=== PATIENT | male | born 1930 | race Caucasian/White ===

== ENCOUNTER 2017-06-10 13:59 | Inpatient (IN) | payer MEDICARE ==
[~2017-06-10] VITALS: Ht 185.4 cm; Wt 79.4 kg
[~2017-06-10 13:59] MED LIST: CIPRO500 MG PO; DULCOLAX10 MG/SUPP RC; GLUCOPHAGE500 MG PO; HYTRIN1 MG PO; LOW DOSE ASPIRI81 M1 PO; MIRALAX17 GM PO; NAPROSYN500 MG PO; NORVASC5 MG PO; OCUVITE TABLET1 TA1 PO; PEPCID40 MG PO; PLAVIX75 MG PO; PLETAL50 MG PO; PROSCAR5 MG PO; PROTONIX40 MG PO; PROZAC20 MG PO; SENOKOT-S TABLE1 TAB PO; ZANTAC300 MG PO
[2017-06-10 16:01] LABS: BASOPHILS 0.2 % (0-2); EOSINOPHILS 0.6 % (0-7); HEMATOCRIT 37.4 % (42.0-54.0); IMMATURE GRANULOCYTES 0.2 % (0-5); MCH 30.7 pg (26.0-34.0); MCHC 34.8 g/dL (31.0-37.0); MCV 88.4 fL (80.0-100.0); PLATELET COUNT 167 10x3/uL (130-400); RBC 4.23 10x6/uL (4.20-6.10); RDW 13.2 % (11.5-14.5)
[2017-06-10 16:16] LABS: INR 1.17 (0.85-1.17); PROTIME 14.8 SECONDS (11.6-15.0)
[2017-06-10 16:23] LABS: ALBUMIN 3.4 g/dL (3.4-5.0); ALKALINE PHOSPHATASE 80 U/L (46-116); ALT (SGPT) 17 U/L (10-68); CALC OSMOLALITY 281 mosm/kg (275-300); CALCIUM 8.3 mg/dL (8.5-10.1); CARBON DIOXIDE 23.9 mmol/L (21.0-32.0); CHLORIDE - SERUM 104 mmol/L (98-107); CREATININE - SERUM 0.8 mg/dL (0.6-1.3); GLUCOSE 161 mg/dL (74-106); POTASSIUM - SERUM 4.6 mmol/L (3.5-5.1); PROTEIN - SERUM 6.5 g/dL (6.4-8.2); SODIUM 139 mmol/L (136-145); UREA NITROGEN 15 mg/dL (7-18); eGFR NON AFRICAN AMERICAN > 90 mL/min (90-120)
[2017-06-10 16:30] LABS: TROPONIN-I < 0.017 ng/mL (0.000-0.060)
[2017-06-10 16:43] LABS: APPEARANCE CLEAR (CLEAR); COLOR DK YELLOW (YELLOW)
[2017-06-10 16:44] LABS: BILIRUBIN NEGATIVE (NEGATIVE); GLUCOSE NEGATIVE (NEGATIVE); KETONE SMALL mg/dL (NEGATIVE); LEUKOCYTE ESTERASE NEGATIVE (NEGATIVE); NITRITE NEGATIVE (NEGATIVE); PROTEIN TRACE mg/dL (NEGATIVE); UROBILINOGEN NORMAL (NORMAL)
[2017-06-10] MEDS ORDERED: DEBROX OTIC15 ML EACH EAR (18:20)
[2017-06-10] MEDS ORDERED: METOPROLOL TART25 MG PO (18:21)
[2017-06-10] MEDS ORDERED: FERROUS SULFAT325 MG PO (18:21)
[2017-06-10] MEDS ORDERED: ZANTAC300 MG PO (18:22)
[2017-06-10] MEDS ORDERED: HYTRIN5 MG PO (18:23)
[2017-06-10] MEDS ORDERED: TRAZODONE HCL50 MG PO (18:23)
[2017-06-10 18:39] VITALS: BP 161/76; BMI 23.1
[2017-06-10 20:00] VITALS: BP 132/78
[2017-06-11] VITALS (11 sets, daily range): BP systolic 97–140; BP diastolic 56–95
[2017-06-11 05:27] LABS: BASOPHILS 0 % (0-2); EOSINOPHILS 0 % (0-7); HEMATOCRIT 33.4 % (42.0-54.0); HEMOGLOBIN 11.4 g/dL (13.5-17.5); IMMATURE GRANULOCYTES 0.2 % (0-5); LYMPHOCYTES 5.5 % (15-50); MCHC 34.1 g/dL (31.0-37.0); MCV 87.9 fL (80.0-100.0); MEAN PLATELET VOLUME 10.3 fL (7.4-10.4); MONOCYTES 7.3 % (2-11); PLATELET COUNT 160 10x3/uL (130-400); RDW 13.3 % (11.5-14.5); WBC 10.3 10x3/uL (4.8-10.8)
[2017-06-11 05:55] LABS: CALC OSMOLALITY 283 mosm/kg (275-300); CALCIUM 8.1 mg/dL (8.5-10.1); CARBON DIOXIDE 26.8 mmol/L (21.0-32.0); CHLORIDE - SERUM 103 mmol/L (98-107); GLUCOSE 201 mg/dL (74-106); POTASSIUM - SERUM 4.6 mmol/L (3.5-5.1); SODIUM 137 mmol/L (136-145); eGFR NON AFRICAN AMERICAN 75 mL/min (90-120)
[2017-06-11 06:03] LABS: UREA NITROGEN 24 mg/dL (7-18)
--- NOTE | 2017-06-11 08:00 | NUR ---
LEFT FLOOR FOR SURGERY, A&O
--- NOTE | 2017-06-11 13:24 | HP ---
PATIENT: RADHA GARCÍA MEDICAL RECORD: [id number] ACCOUNT: [id number] LOCATION:[id number] : [birth year] ADMISSION DATE: 06/10/17 HISTORY AND PHYSICAL EXAMINATION HISTORY OF PRESENT ILLNESS: An 87-year-old male who tripped and fell coming back to the assisted living facility today complaining of left hip pain and was unable to bear weight after the fall, brought to the Emergency Room and found to have a left femur fracture, closed. PAST MEDICAL HISTORY: Significant for diabetes, hypertension, remote history of ischemic cerebrovascular accident, also remote history of bladder cancer, iron deficiency anemia, hypertension, temporal arteritis and BPH. SOCIAL HISTORY: , retired and lives in [facility]. Admits occasional alcohol, had 2 drinks prior to his fall. He continues to smoke on a daily basis. FAMILY HISTORY: Mother and sister with heart disease. PAST SURGICAL HISTORY: Tumor resection in 1991, appendectomy in 1949. CURRENT MEDICATIONS: Plavix 75 mg daily, iron sulfate 325 mg delayed release b.i.d., finasteride 5 mg daily, fluoxetine 20 mg daily, metoprolol 25 mg b.i.d., pantoprazole 40 mg daily, ranitidine 300 mg daily, prazosin 5 mg b.i.d. and trazodone 50 mg q.h.s. REVIEW OF SYSTEMS: CONSTITUTIONAL: No acute change in weight or appetite. HEENT: No cephalgia, visual changes, tinnitus, epistaxis or dysphagia. CARDIOVASCULAR: Denies chest pain or palpitations. PULMONARY: Denies hemoptysis, denies night sweats. Has COPD and continues to smoke. GASTROINTESTINAL: Denies hematemesis, hematochezia or melena. GENITOURINARY: Denies dysuria, no acute changes. MUSCULOSKELETAL: Left hip pain, acute fracture as noted above. NEUROLOGIC: No focal deficits. PHYSICAL EXAMINATION: VITAL SIGNS: Temp 98.1, heart rate 94 and regular, respirations 18, blood pressure 144/72, O2 sat is 94% on 2 liters. GENERAL: Alert and oriented, in no significant distress when not moving, grossly pain in left hip. HEENT: Normocephalic, atraumatic. Eyes: Pupils equal, round, reactive. Ears: Canals patent. TMs are intact. Nose: Nares patent without drainage. Throat: No erythema, no exudates. NECK: Supple. No lymphadenopathy. HEART: Regular rate and rhythm. No S3, S4, no rub. LUNGS: Clear to auscultation bilaterally, mild expiratory wheeze. Breathing is nonlabored. ABDOMEN: Soft, nontender. Bowel sounds in all 4 quadrants. EXTREMITIES: Present times 4, no edema. NEUROLOGIC: No present focal deficits appreciated. LABORATORY DATA: Urinalysis: Yellow, clear, specific gravity 1.03. CBC: HISTORY AND PHYSICAL [id number] RADHA GARCÍA White count 10,000, hemoglobin 13, hematocrit 37.4, platelets 167. PT 14.8, INR 1.17. Chemistry shows sodium of 139, potassium 4.6, chloride 104, bicarb 23.9, BUN 15, creatinine 0.8, glucose 161, AST 15, ALT 17, alkaline phosphatase 80. Troponin less than 0.017. X-ray of left hip, 2 views, comminuted intertrochanteric fracture with some impaction, varus angulation, degenerative changes. Chest x-ray, under inflation, mild vascular congestion, no acute process. ASSESSMENT AND PLAN: 1. Intertrochanteric left femur fracture. Ortho consulted. Surgery anticipated at 8:00 a.m. in the morning per report. 2. Iron deficiency anemia. Monitor. Continue iron supplements. 3. Chronic obstructive pulmonary disease. DuoNeb q.i.d. and prior to intubation. 4. Diabetes. Sliding scale insulin low resistance q. 12 hours. Supportive care. Also discussed with the patient and family code status, anticipate good outcome though with age and comorbidities, they state his wishes DNR code status. No heroic measures. TRANSINT:[id number] Voice Confirmation ID: [id number] DOCUMENT ID: [id number] HORTENSIA ADAIR DO at 1324 CC: [id number] DICTATION DATE: 06/10/171746 EXTERIOR DESIGNER: 06/10/17 1850 ADM IN [id number] [place] [address]
--- NOTE | 2017-06-11 14:25 | OP ---
PATIENT NAME: RADHA GARCÍA MEDICAL RECORD: [id number] :[birth year] LOCATION:[id number] ADMISSION DATE:06/10/17 SURGEON: CONSTANZA FIELDS, OPERATION DATE: 06/10/17 DATE OF OPERATION: 06/11/2017 PROCEDURE PERFORMED: Left hip intramedullary nailing. INDICATION FOR PROCEDURE: Mr. García is an 87-year-old male who fell after having lunch yesterday and sustained a left hip fracture. It was an unstable IT fracture and after discussion with his family and himself, he did not want to be bedridden as he is active. He does walk with a walker, but he does get out and he is not bedbound. Therefore, they decided to proceed forward with the procedure of a left hip intramedullary nailing. After the risks and benefits of the procedure were discussed, they consented to have the procedure done as his daughter is his power of sports attorney and he is lucid. PREOPERATIVE DIAGNOSIS: Left hip unstable intertrochanteric fracture. POSTOPERATIVE DIAGNOSIS: Left hip unstable intertrochanteric fracture. DESCRIPTION OF PROCEDURE: Mr. García, after proper consents were performed was taken to the operative suite, placed in supine position, intubated by anesthesia and sedated. He was then moved over to the fracture table. At that time, the left foot was wrapped with ABDs, Webril and Coban and placed into the foot martínez. The foot martínez was then overwrapped with Coban to avoid any slippage of the left foot. A timeout was then performed and all parties were in agreement with the correct side and site and patient and 2 grams of Ancef were given to the patient at that time. At that time, the x-ray machine came in, C-arm and a reduction was performed with the left hip and it was seen to be in adequate position. The left hip was then prepped and draped in a sterile manner and proceeded forth with the guide pin being placed into the correct position just medial to the greater trochanter between the anterior one-third and posterior two-thirds of the trochanter just medial to that. Guide pin was then placed into the intramedullary canal and the soft tissue protector was placed over that. The anterior reamer was then reamed over the guide pin and reaming then commenced using up to a 13 reamer and the length of the nail was measured at that time. The length was 11 mm nail x 420 mm. After the reaming, the intramedullary nail was placed over the guide pin and taken to the appropriate depth and the guide pin was then removed. At that time, the jig was in place with the nail and attention was then drawn to the lag screw site. The cannula was placed up through the jig and the skin was incised at that site and a proper trajectory and placement of the lag screw. Guide pin was placed into the center of the femoral head on the lateral position and was in correct position on the AP as well. Measurement was then made to be 105-mm lag screw and the drill was then placed up in from the lag screw and the 105-mm lag screw was then ____ lag screw, the anti-rotation drill was used just superior to the lag screw site and put in place. Lag screw was then put into place and the anti-rotation screw drill was removed. Traction was then taken off of the leg and the lag screw was compressed using the compression device. Once that was done, the anti-rotation screw was placed through the jig and x-rays were confirmed that was in the proper position on the AP. On the lateral; however, appeared to miss the jig posteriorly; however, it was still in bone as left in place. The jig was then removed and attention was drawn to the distal aspect of the nail and perfect OPERATIVE REPORT [id number] RADHA GARCÍA were performed using the C-arm. Drill bits were then used after incising the skin to go through the drill holes through the nail and a 44-mm screw was placed in the proximal hole and a 48-mm screw was used in the distal one. The anti-rotation screw was a 95-mm. After that was done, the wounds were copiously irrigated with normal saline and the IT band was closed using #1 Vicryl and the skin at the proximal sites were closed with 2-0 inverted interrupted. The distal sites were closed with #1 inverted interrupted with 4-0 Monocryl. The proximal sites were then ran on the skin with 4-0 Monocryl subcuticular running stitch at both the entry incision as well as the lag screw and anti-rotation screw incision site. Steri-Strips were then placed over the wounds and Adaptic, Telfa and Tegaderm were then placed on these sites. The patient was awakened in stable condition and taken to the recovery room in stable condition. Estimated blood loss was 100 mL. TRANSINT:[id number] Voice Confirmation ID: [id number] DOCUMENT ID: [id number] CONSTANZA FIELDS DO at 1425 CC: [id number] DICTATION DATE: 06/11/17 1028 TRADE SHOW SPECIALIST: 06/11/17 1150 ADM IN [place] [id number] [place] [address]
--- NOTE | 2017-06-11 15:27 | NUR ---
PT ASLEEP LYING FLAT IN BED. NO VISABLE SIGNS OF PAIN OR DISCOMFORT AT THIS TIME. BED IN LOW POSITION AND CALL LIGHT WITHIN REACH. WILL CONTINUE TO MONITOR.
--- NOTE | 2017-06-11 18:25 | NUR ---
PERIPHERAL PULSES CHECKED-PRESENT LEG WARM
--- NOTE | 2017-06-11 19:35 | NUR ---
RECIEVED SHIFT REPORT. PT IS LYING IN BED. ALERT AND ORIENTED AND ABLE TO VERBALIZE NEEDS. IV IS PATENT AND FLUIDS ARE RUNNING PER ORDER. SCD'S ON. DRESSINGS TO LEFT HIP C/D/I. O2 @ 5 PER OXIMIZER. PT DENIES ANY PAIN AT THIS TIME. NO NEEDS ARE VERBALIZED AT THIS TIME. WILL CONTINUE TO MONITOR. SIDE RAILS ARE UP X 2. BED IS IN LOWEST POSITION. BED ALARM IS ON FOR SAFETY. CALL LIGHT IS WITHIN REACH.
--- NOTE | 2017-06-11 21:22 | NUR ---
SHIFT ASSESSMENT COMPLETED. NIGHT MEDS GIVEN WITH NO PROBLEMS. SCHEDULED LOPRESSOR HELD DUE TO B/P=97/63. PT RECIEVED 4 UNITS INSULIN PER SLIDING SCALE FOR RSVW=328. NO NEEDS ARE VOICED. WILL MONITOR. SIDE RAILS X 2. BED LOW. BED ALARM ON. CALL LIGHT IN REACH.
[2017-06-12] VITALS: BP 158/73
[2017-06-12 04:00] VITALS: BP 138/70
[2017-06-12 04:33] LABS: BASOPHILS 0.1 % (0-2); EOSINOPHILS 0 % (0-7); HEMATOCRIT 27.3 % (42.0-54.0); HEMOGLOBIN 9.3 g/dL (13.5-17.5); IMMATURE GRANULOCYTES 0.3 % (0-5); LYMPHOCYTES 5.5 % (15-50); MCH 30.5 pg (26.0-34.0); MCHC 34.1 g/dL (31.0-37.0); MCV 89.5 fL (80.0-100.0); MEAN PLATELET VOLUME 10.1 fL (7.4-10.4); MONOCYTES 11.1 % (2-11); PLATELET COUNT 146 10x3/uL (130-400); RBC 3.05 10x6/uL (4.20-6.10); RDW 13.6 % (11.5-14.5); WBC 11.3 10x3/uL (4.8-10.8)
[2017-06-12 04:52] LABS: CALC OSMOLALITY 286 mosm/kg (275-300); CALCIUM 7.8 mg/dL (8.5-10.1); CARBON DIOXIDE 26.3 mmol/L (21.0-32.0); CHLORIDE - SERUM 105 mmol/L (98-107); CREATININE - SERUM 0.9 mg/dL (0.6-1.3); GLUCOSE 188 mg/dL (74-106); POTASSIUM - SERUM 4.3 mmol/L (3.5-5.1); SODIUM 139 mmol/L (136-145); UREA NITROGEN 25 mg/dL (7-18); eGFR NON AFRICAN AMERICAN 84 mL/min (90-120)
--- NOTE | 2017-06-12 07:45 | NUR ---
PT ASSESSMENT COMPLETE AWAKE AND ALERT ORINETD IS EXTREEMLY HARD OF HEARING NO ACUTE DISTRESS NOTED DRESSING X 3 SITES NOTED TO LEFT HIP AND THIGH. BSA X 4 PT ON ELIQUIS FOR PROPHALAXYSIS DVT.
--- NOTE | 2017-06-12 09:51 | NUR ---
Rehab Prescreening Consult recieved and the chart has been reviewed. She is POD #1 and has not had a PT eval. She is a good IRF candidate if she is able to tolerate the 3 hrs of therapy every day 5 days a week. Rehab will follow. Leanne Beckman RN Clinical Liaison, Rehab
--- NOTE | 2017-06-12 10:01 | NUR ---
Rehab Prescreening Consult recieved and the chart has been reviewed. He is POD#1. A PT eval has been ordered but not completed. Rehab will follow patient and see how he tolerates therapy. Leanne Beckman RN Clinical Liaison, Rehab
--- NOTE | 2017-06-12 14:42 | NUR ---
PT SAT UP IN CHAIR AT BEDSIDE FOR SEVERAL HOURS TODAY WITH ASSISTANCE OF THERAPY STAFF. DAUGHTER AT SIDE FOR MUCH OF SHIFT. TREATMENT FOR PAIN EARLIER THIS SHIFT DENIES PAIN AT THIS TIME
[2017-06-12 16:15] VITALS: BP 112/56
[2017-06-12 19:00] VITALS: BP 141/61
--- NOTE | 2017-06-12 19:35 | NUR ---
RECIEVED SHIFT REPORT. PT IS LYING IN BED. ALERT AND ORIENTED AND ABLE TO VERBALIZE NEEDS. IV IS PATENT AND FLUIDS ARE RUNNING PER ORDER. SCD'S ON. OXIMIZER @ 5. DRESSINGS TO LEFT HIP C/D/I. PT STATES PAIN IS 5/10. NO NEEDS ARE VERBALIZED AT THIS TIME. DAUGHTER AT BEDSIDE. WILL CONTINUE TO MONITOR. SIDE RAILS ARE UP X 3. BED IS IN LOWEST POSITION. BED ALARM IS ON FOR SAFETY. CALL LIGHT IS WITHIN REACH.
[2017-06-13] VITALS (18 sets, daily range): BP systolic 107–157; BP diastolic 54–78; Ht 185.4 cm; Wt 79.4 kg
[2017-06-13 05:04] LABS: HEMATOCRIT 22.5 % (42.0-54.0); HEMOGLOBIN 7.9 g/dL (13.5-17.5); MCH 31.1 pg (26.0-34.0); MCHC 35.1 g/dL (31.0-37.0); MCV 88.6 fL (80.0-100.0); MEAN PLATELET VOLUME 10.4 fL (7.4-10.4); RBC 2.54 10x6/uL (4.20-6.10); RDW 13.6 % (11.5-14.5); WBC 8.7 10x3/uL (4.8-10.8)
--- NOTE | 2017-06-13 07:30 | NUR ---
AWAKE AND ALERT. ORIENTED X3. NO C/O AT THIS TIME. LUNGS ARE CLEAR BILATERALLY, NO COUGH NOTED. SKIN IS INTACT WITHOUT REDNESS EXCEPT INCISIONS TO LEFT HIP WHICH HAVE A DRY INTACT DRESSING IN PLACE. NO IV AT THIS TIME. DENIES NEEDS.
--- NOTE | 2017-06-13 09:00 | NUR ---
TOOK AM MEDS WITHOUT DIFFICULTY. ATE MOST OF BREAKFAST PER SELF.
--- NOTE | 2017-06-13 11:18 | NUR ---
IV SITED TO RIGHT UPPER ARM AFTER ONE ATTEMPT WITH 20 G. GIVEN PRE MEDS FOR TRANSFUSION WELL. SITTING UP IN CHAIR AT BEDSIDE.
--- NOTE | 2017-06-13 11:45 | NUR ---
TRANSFUSION CONTINUES WITHOUT COMPLICATIONS. VSS. PATIENT IS VERY CONFUSED.
--- NOTE | 2017-06-13 11:45 | NUR ---
FIRST UNIT PRBC UP AT THIS TIME. VSS.
--- NOTE | 2017-06-13 12:45 | NUR ---
TRANSFUSION CONTINUES. VSS. FAMILY AT BEDSIDE. ATE A FEW BITES OF LUNCH.
--- NOTE | 2017-06-13 14:30 | NUR ---
TRANSFUSION COMPLETED WTIHOUT COMPLICATIONS. DENIES NEEDS. O2 SAT CONTINUE TO GO UP AND DOWN. WILL CONTINUE TO MONITOR.
--- NOTE | 2017-06-13 16:00 | NUR ---
SECOND UNIT OF PRBC UP AT THIS TIME. VSS. DENIES NEEDS.
--- NOTE | 2017-06-13 16:09 | NUR ---
Patient Name: RADHA GARCÍA Admission Status: ER Accout number: [id number] Admission Date: 06-10-2017 : 1930 Admission Diagnosis:DISPLACED INTERTROCHANTERIC FRACTURE OF LEFT FEMUR, INI Attending: LYN Current LOS: 3 Anticipated DC Date: Planned Disposition: Inpatient Rehab Primary Insurance: MEDICARE A & B Discharge Planning Comments: CM MET WITH PATIENTS DAUGHTER (DENNIS) AND HER REGARDING D/C NEEDS AND PLANS. PATIENT IS FROM [facility] AND HAS A WALKER AND WHEELCHAIR. PATIENT WAS WALKING WITH HIS WALKER BEFORE HIS FALL. PATIENTS PCP IS DR. ADAIR AND PHARMACY IS [facility]. PATIENT HAS BEEN ACCEPTED TO REHAB WITH DR. CASTILLO REFERRAL. PATIENT CANNOT RETURN TO [facility] AT THIS TIME. FAMILY WAS VERY HAPPY PATIENT HAD BEEN ACCEPTED TO REHAB. CM WILL CONTINUE TO FOLLOW PATIENT WITH D/C NEEDS AND PLANS. PCP DR. ADAIR [facility]- [phone] DENNIS (DAUGHTER) [phone] Adult Probation Officer: Ericka Maciel How many steps to enter\exit or inside your home? 0 0 * PCP DR. ADAIR 0 * Pharmacy [facility] 0 * Preadmission Environment Assisted Living 0 * Facility Name [facility] 0 * ADLs Partial Dependent 0 * Partial ADLs (Assistance needed) Ambulation Bathing Dressing Medication Management Toileting Transfers 0 * Equipment Walker Wheelchair 0 * List name and contact numbers for known caregivers / representatives who currently or will assist patient after discharge: DENNIS (DAUGHTER) [phone] 0 * Community resources currently utilized Assisted Living 0 * Please name any agencies selected above. [facility] 0 * Additional services required to return to the preadmission environment? Yes 0 * Can the patient safely return to the preadmission environment? No 0 * Has this patient been hospitalized within the prior 30 days at any hospital? No 0 Grand Total: 0
--- NOTE | 2017-06-13 16:15 | NUR ---
TRANSFUSION CONTINUES WITHOUT DIFFICULTY. VSS.
--- NOTE | 2017-06-13 17:15 | NUR ---
TRANSFUSION CONTINUES WITHOUT DIFFICUTLY. VSS. DENIES NEEDS. ATE A FEW BITES OF SUPPER.
--- NOTE | 2017-06-13 18:30 | NUR ---
TRANSFUSION COMPLETED WITHOUT DIFFICULTY. VSS. NO CHANGES AT THIS TIME.
--- NOTE | 2017-06-13 19:30 | NUR ---
RECIEVED SHIFT REPORT. PT IS LYING IN BED. PT WITH INTERMITTENT CONFUSION. IV IS PATENT AND SALINE LOC AT THIS TIME. SCD'S ON. PT DENIES ANY PAIN AT THIS TIME. DRESSINGS TO LEFT HIP C/D/I. OXIMIZER @ 12. NO NEEDS ARE VERBALIZED AT THIS TIME. WILL CONTINUE TO MONITOR. SIDE RAILS ARE UP X 2. BED IS IN LOWEST POSITION. BED ALARM IS ON FOR SAFETY. CALL LIGHT IS WITHIN REACH.
--- NOTE | 2017-06-13 21:47 | NUR ---
SHIFT ASSESSMENT COMPLETED. NIGHT MEDS GIVEN WITH NO PROBLEMS. PT RECIEVED NO INSULIN PER SLIDING SCALE FOR MIWD=496. NO NEEDS ARE VOICED. WILL MONITOR. SIDE RAILS X 2. BED LOW. BED ALARM ON. CALL LIGHT IN REACH.
[2017-06-14] VITALS: BP 166/96
[2017-06-14 04:00] VITALS: BP 135/71
--- NOTE | 2017-06-14 07:30 | NUR ---
AWAKE AND ALERT. ORIENTED TO SELF. REORIENTED PER STAFF TO TIME PLACE AND SITUATION. LUNGS ARE CLEAR BILATERALLY, NO COUGH NOTED. SKIN IS INTACT WITHOUT REDNESS EXCEPT 3 SMALL INCISIONS TO LEFT HIP WHICH HAVE DRY INTACT DRESSINGS IN PLACE. SL TO RIGHT UPPER ARM IS PATENT WITHOUT REDNESS AT INSERTION SITE. DENIES NEEDS.
[2017-06-14] MEDS ORDERED: ELIQUIS2.5 MG PO (07:50)
[2017-06-14] MEDS ORDERED: HYDROCODON-ACE1 EAC7 PO (07:51)
--- NOTE | 2017-06-14 08:00 | NUR ---
SITTING UP IN BED ALERT AND ORIENTED. DR FIELDS IN WITH PT. PT OFFERS NO COMPLAINTS. CALL LIGHT IN REACH, BED LOW. WILL CONTINUE TO MONITOR. O2 ON 12L WITH OXYMIZER
[2017-06-14 08:18] VITALS: BP 166/68
[2017-06-14 08:44] LABS: HEMATOCRIT 28.4 % (42.0-54.0); HEMOGLOBIN 10.1 g/dL (13.5-17.5); LYMPHOCYTES 10.6 % (15-50); MCH 31.2 pg (26.0-34.0); MCHC 35.6 g/dL (31.0-37.0); MCV 87.7 fL (80.0-100.0); MEAN PLATELET VOLUME 9.6 fL (7.4-10.4); NEUTROPHILS 76.5 % (40-80); PLATELET COUNT 154 10x3/uL (130-400); RBC 3.24 10x6/uL (4.20-6.10); RDW 14.1 % (11.5-14.5); WBC 7.7 10x3/uL (4.8-10.8)
--- NOTE | 2017-06-14 09:53 | NUR ---
ADMINISTERED MORNING MEDS WITHOUT DIFFICULTY PT SITTING UP IN CHAIR RESTING. OFFERS NO COMPLAINTS. CALL LIGHT IN REACH. WILL CONTINUE TO MONITOR
--- NOTE | 2017-06-14 12:30 | NUR ---
LUNCH SERVED IN ROOM. DIDN'T EAT MUCH IF ANY. DRANK GLUCERNA SHAKE. FSBS PRIOR TO MEAL WAS 139. NO COVERAGE REQUIRED. STILL SITTING UP IN CHAIR AT BEDSIDE.
[2017-06-14 15:59] VITALS: BP 160/69
--- NOTE | 2017-06-14 17:15 | NUR ---
FSBS 181 GIVEN 2 UNITS REGULAR SUBQ PER SS. ALSO C/O PAIN TO LEFT HIP. GIVEN ONE 5MG HYDROCODONE PO FOR SAME. WILL MONITOR.
--- NOTE | 2017-06-14 18:24 | NUR ---
ATE A FEW BITES OF SUPPER WITH SET UP ASSIST FROM STAFF. REPORTS PAIN IMPROVED AT THIS TIME. NO CHANGES NOTED. DENIES NEEDS.
[2017-06-14 20:00] VITALS: BP 130/55
--- NOTE | 2017-06-14 22:30 | NUR ---
ADMINISTERED PATIENT'S SCHEDULED MEDICATIONS, WHOLE, 1 AT A TIME. PATIENT SWALLOWED THEM WITHOUT DIFFICULTY. PATIENT STATED "I NEED TO PEE." ASSISTED PATIENT USING THE URINAL, BUT HE WAS ALREADY VOIDING WHEN HE VERBALIZED NEED TO URINATE SO ONLY SOME OF IT WENT IN THE URINAL.
--- NOTE | 2017-06-14 22:45 | NUR ---
WITH ASSISTANCE FROM MIKAYLA, GAVE PATIENT A BEDBATH USING THE BATHWIPES AND CHANGED HIS LINENS. AFTER THE BATH WAS FINISHED TURNED PATIENT TO HIS LEFT SIDE POSITIONED WITH A PILLOW. HOB AT 40 DEGREES. PATIENT HAS OXYMIZER ON AT 5L/MIN. PATIENT DOES NOT APPEAR TO BE IN DISTRESS. PATIENT WENT TO SLEEP SOON THE BATH WAS COMPLETE. CALL LIGHT IN REACH. BED RAILS UP X'S 3. DOOR OPEN. BED ALARM ON.
[2017-06-15] VITALS: BP 122/59
[2017-06-15 04:00] VITALS: BP 125/60
--- NOTE | 2017-06-15 07:00 | NUR ---
PT REC'D FROM [facility]. RESTING IN BED WITH EYES CLOSED. NO SIGNS OF DISTRESS. RESP EVEN AND UNLABORED. BED LOW, CALL LIGHT IN REACH, DENIES NEEDS. CPOC.
--- NOTE | 2017-06-15 07:53 | DS ---
PATIENT:RADHA GARCÍA :[birth year] MEDICAL RECORD: [id number] DISCHARGE SUMMARY ADMISSION DATE: 06/10/17 DISCHARGE DATE: DATE OF ADMISSION: 06/10/2017 DATE OF DISCHARGE: 06/14/2017 ADMISSION DIAGNOSES: Left femur fracture, acute blood loss anemia, chronic iron deficiency anemia, chronic obstructive pulmonary disease and diabetes. DISCHARGE DIAGNOSES: Left femur fracture, status post open reduction and internal fixation, postoperative anemia, resolved, status post transfusion; chronic iron deficiency anemia, chronic obstructive pulmonary disease and diabetes. HOSPITAL COURSE: The patient was admitted after a fall at the assisted living facility, found to have a left femur fracture. Orthopedics consulted and underwent open reduction and internal fixation, had postop anemia, was transfused, has been cleared for discharge to inpatient rehab. He was discharged to rehab in significantly improved condition. PHYSICAL EXAMINATION: VITAL SIGNS: On discharge, temperature 98.2, blood pressure 135/71, heart rate 86, respirations 19 and O2 sat 92%. GENERAL: Alert and oriented, in no acute distress. HEART: Regular rate and rhythm. LUNGS: Clear. ABDOMEN: Soft and nontender. Bowel sounds all 4 quadrants. LABORATORY DATA: Glucose readings past 24 hours have been 150 or less with no intervention. The patient is compliant with physical therapy, will follow up as outpatient. He is on Eliquis. We will hold his Plavix until course of Eliquis completed after his rehabilitation. He will follow up in the clinic after discharge from rehab. Please see chart for further details. TRANSINT:[id number] Voice Confirmation ID: [id number] DOCUMENT ID: [id number] HORTENSIA ADAIR DO at 0753 CC: [id number] DICTATION DATE: 06/14/17 0759 POLYSOMNOGRAPH TECH: 06/15/17 0148 ADM IN [facility] [address] [place] [address]
[2017-06-15 07:55] VITALS: BP 112/61
--- NOTE | 2017-06-15 10:00 | NUR ---
MORNING MEDS PASSED AT THIS TIME. TOLERATED WELL BY TAKING 1 TO 2 PILLS AT A TIME. FRESH WATER PROVIDED. DRESSING TO L HIP CHANGED PER ORDERS. BED LOW, CALL LIGHT IN REACH, DENIES NEEDS. CPOC.
--- NOTE | 2017-06-15 11:44 | NUR ---
PT LEFT IN WHEEELCHAIR AFTER XRAY. ASSISTED BACK TO RECLINER WITH ASSIST X 2 WITH WALKER. WALKED AT LEAST 10 STEPS APPROX. 3 FEET. CALL LIGHT IN REACH
[2017-06-15 12:17] VITALS: BP 96/56
--- NOTE | 2017-06-15 13:00 | NUR ---
SITTING UP IN CHAIR AT BEDSIDE. NO COMPLAINTS. CALL LIGHT IN REACH, DENIES NEEDS. CPOC.
--- NOTE | 2017-06-15 13:13 | NUR ---
NUTRITION MONITORING & EVAL CHART REVIEWED. PT VISIT. TOLERATING ADA DIET, GLUCERNA SHAKE. WILL CONTINUE TO PROVIDE DIET, SHAKE. RD FOLLOWING
[2017-06-15] MEDS ORDERED: LASIX40 MG PO (15:10)
[2017-06-15] MEDS ORDERED: K-DUR20 MEQ PO (15:11)
[2017-06-15 15:49] VITALS: BP 104/62
--- NOTE | 2017-06-15 16:48 | NUR ---
CM REASSESSMENT NOTE: PATIENT IS DISCHARGING TO IP REHAB TODAY. NURSE SARAH NOTIFIED FAMILY.
--- NOTE | 2017-06-15 16:59 | NUR ---
ATTEMPTING TO CALL DAUGHTER TO PROVIDE UPDATE AND INFORM OF PT'S TRANSFER TO NEW ROOM.
--- NOTE | 2017-06-15 18:56 | NUR ---
REPORT CALLED TO CHERRY WARNER, IN REHAB. PIV TO R UPPER ARM DC'D WITH CATHETER INTACT. PT WAS UNABLE TO SIGN DISCHARGE PAPERS. NO QUESTIONS OR CONCERNS VOICED AT THIS TIME. TRANSFERRED DOWN VIA BED.
== END 2017-06-15 19:00 | DRG 481 ==
LOC: D.ER 13:59 → D.MS 15:53
PROVIDERS: Emergency Medicine; Orthopaedic Surgery; ADMIT Family Medicine
PROC: 0QS636Z Reposition Right Upper Femur with Intramedullary Internal Fixation Device, Percutaneous Approach (ICD-10-PCS; principal; 2017-06-10)
DX: S72.142A Displaced intertrochanteric fracture of left femur, initial encounter for closed fracture (principal); D62 Acute posthemorrhagic anemia; W19.XXXA Unspecified fall, initial encounter; J44.9 Chronic obstructive pulmonary disease, unspecified; F17.200 Nicotine dependence, unspecified, uncomplicated; E11.9 Type 2 diabetes mellitus without complications; I10 Essential (primary) hypertension; R00.0 Tachycardia, unspecified

== ENCOUNTER 2017-06-15 17:37 | Inpatient (IN) | payer MEDICARE ==
[~2017-06-15] VITALS: Ht 185.4 cm; Wt 90.7 kg
[~2017-06-15 17:37] MED LIST changes: +DEBROX OTIC15 ML EACH EAR; +ELIQUIS2.5 MG PO; +FERROUS SULFAT325 MG PO; +HYDROCODON-ACE1 EAC7 PO; +HYTRIN5 MG PO; +K-DUR20 MEQ PO; +LASIX40 MG PO; +METOPROLOL TART25 MG PO; +TRAZODONE HCL50 MG PO
--- NOTE | 2017-06-15 18:30 | NUR ---
REVEIVED PT FROM MED SURG, PT IS HARD OF HEARING, A LITTLE OF CONFUSED, BUT SPEAK CLEARLY.
--- NOTE | 2017-06-15 22:35 | NUR ---
THREE INCISIONS EACH WITH STERI STRIPS. PROXIMAL HIP INCISION SCANT SEROUSANQUOUS DRAINAGE, DRESSING CHANGED AND REAPPLIED MEPIPLEX. DISTAL INCISIONS STERI STRIPS INTACT, DRESSING REMOVED AND OPEN TO AIR.
[2017-06-15 22:42] VITALS: BP 120/82
[2017-06-16 00:19] VITALS: BP 120/82; BMI 26.4
--- NOTE | 2017-06-16 00:31 | NUR ---
RAND BOX ALARM PUT ON PATIENT.
--- NOTE | 2017-06-16 03:29 | NUR ---
REST IN BED, EYE CLOSE, BED LOW, CALL LIGHT WITHIN REACH.
[2017-06-16 07:09] LABS: BASOPHILS 0.1 % (0-2); EOSINOPHILS 3.1 % (0-7); HEMATOCRIT 29.9 % (42.0-54.0); HEMOGLOBIN 10.2 g/dL (13.5-17.5); IMMATURE GRANULOCYTES 0.9 % (0-5); LYMPHOCYTES 17.7 % (15-50); MCH 30.4 pg (26.0-34.0); MCHC 34.1 g/dL (31.0-37.0); MEAN PLATELET VOLUME 9.1 fL (7.4-10.4); MONOCYTES 12.5 % (2-11); NEUTROPHILS 65.7 % (40-80); RBC 3.36 10x6/uL (4.20-6.10); RDW 14.2 % (11.5-14.5); WBC 7.1 10x3/uL (4.8-10.8)
[2017-06-16 07:14] LABS: PLATELET COUNT 210 10x3/uL (130-400)
--- NOTE | 2017-06-16 07:30 | NUR ---
PT IS RESTING IN BED WITH EYES CLOSED. AWOKE EASILY TO VERBAL STIMULI. ALERT AND ORIENTED X 3. CONFUSED TO TIME AND PLACE, BUT REORIENTED EASILY. VSS. O2 IS ON @ 3LPM PER NC. EXP. RHONCHI NOTED IN ALL LUNG LOBES. PT DENIES ANY PAIN OR DISCOMFORT. SR'S ARE UP X 3 IN BED. CALL LIGHT AND BEDSIDE TABLE ARE WITHIN EASY REACH.
[2017-06-16 07:31] LABS: CALC OSMOLALITY 286 mosm/kg (275-300); CALCIUM 7.9 mg/dL (8.5-10.1); CARBON DIOXIDE 27.7 mmol/L (21.0-32.0); CHLORIDE - SERUM 104 mmol/L (98-107); CREATININE - SERUM 0.7 mg/dL (0.6-1.3); POTASSIUM - SERUM 3.7 mmol/L (3.5-5.1); SODIUM 141 mmol/L (136-145); UREA NITROGEN 26 mg/dL (7-18); eGFR NON AFRICAN AMERICAN > 90 mL/min (90-120)
[2017-06-16 07:33] LABS: GLUCOSE 122 mg/dL (74-106)
[2017-06-16 08:00] VITALS: BP 142/74
--- NOTE | 2017-06-16 09:34 | NUR ---
PT IS PARTICIPATING IN THERAPY AT THIS TIME.
[2017-06-16 12:35] VITALS: Ht 185.4 cm; Wt 90.7 kg
--- NOTE | 2017-06-16 12:37 | NUR ---
PT IS SITTING IN A WC IN HIS ROOM FEEDING SELF LUNCH. NO SWALLOWING PROBLEMS NOTED. NO COMPLAINT VOICED.
--- NOTE | 2017-06-16 13:04 | NUR ---
PT ASSISTED TO THE BATHROOM WITH MAX ASSIST FOR TRANSFERS AND TOILETING. XLARGE FORMED BM NOTED. PT OFFERED A SHOWER WHICH HE ADAMANTLY REFUSED STATING HE NEEDED TO LAY DOWN AND GET SOME REST. PT ASSISTED BACK TO BED WITH 2 PERSON MAX ASSIST.
--- NOTE | 2017-06-16 15:00 | NUR ---
PT IS RESTING QUIETLY IN BED WITH EYES CLOSED. RESPS ARE EVEN AND UNLABORED. NO ACUTE DISTRESS NOTED.
--- NOTE | 2017-06-16 17:50 | NUR ---
PT RESTING QUIETLY IN BED WITH EYES CLOSED. RESPS ARE EVEN AND UNLABORED. NO ACUTE DISTRESS NOTED.
--- NOTE | 2017-06-16 18:45 | NUR ---
RESTING QUIETLY IN BED. CALL LIGHT IN REACH
[2017-06-16 19:50] VITALS: BP 138/64
--- NOTE | 2017-06-16 19:50 | NUR ---
INCONTINENCE, CLEAN AND CHANGE LINEN AND GOWN.
--- NOTE | 2017-06-17 03:13 | NUR ---
REST QUIETLY IN BED, EYE CLOSE, BED LOW, CALL LIGHT WITHIN REACH.
--- NOTE | 2017-06-17 03:15 | NUR ---
IN BED, EYES CLOSED. NO EVIDENT DISTRESS.
[2017-06-17 07:30] VITALS: BP 163/78
--- NOTE | 2017-06-17 09:27 | NUR ---
PT IS RESTING IN BED WITH EYES CLOSED AFTER BREAKFAST. NO ACUTE DISTRESS NOTED. VSS. O2 IS ON @ 3LPM PER NC. NO SOB NOTED. SR'S ARE UP X 3 IN BED. CALL LIGHT AND BEDSIDE TABLE ARE WITHIN EASY REACH.
--- NOTE | 2017-06-17 12:30 | RHP ---
PATIENT: RADHA GARCÍA MEDICAL RECORD: [id number] ACCOUNT: [id number] LOCATION:[id number] : [birth year] ADMISSION DATE: 06/15/17 REHABILITATION HISTORY AND PHYSICAL EXAMINATION POST ADMISSION PHYSICIAN EXAMINATION Post-Admission Physical Examination DATE OF ADMISSION: 06/15/2017 ADMITTING DIAGNOSIS: Left comminuted intertrochanteric hip fracture. HISTORY OF PRESENT ILLNESS: The patient was admitted to inpatient rehab with status post ORIF of a left comminuted intertrochanteric hip fracture. He is an 87-year-old gentleman, who tripped and fell, coming back from lunch at [facility]. He fell on his left side. He cannot bear weight on his left lower extremity after the fall, was brought to the ED. He normally walks with a walker. The left leg was shortened and externally rotated, increased pain with touch, range of motion or log rolling. Left hip x-ray showed a left comminuted intertrochanteric hip fracture. Ortho was consulted and after medical clearance, he went to the OR on June 11 for left hip intramedullary nailing. His postop course was complicated by hypoxia with sats in the 80s. Chest x-ray showed mild pulmonary edema and vascular congestion. He had acute blood loss anemia with an H&H of 7.3 and 22.5. He received 2 units of packed red blood cells. He had postop confusion. Previously, he was living alone in an apartment at [facility]. He is moderately independent for ADLs and mobility using a rolling walker. Currently, he is moderate to max assist for ADLs and mobility. He has been weaned to 3 L of O2 with a sat of 96%. His H&H is trending upward with an H&H of 10 and 28. His mental status is somewhat back to baseline. He wants to regain his strength and be able to return home and get back to his prior level of functioning. COMORBIDITIES: In this patient include pulmonary edema, vascular congestion, tachycardia, COPD, acute blood loss anemia, iron deficiency anemia, hypoxia, diabetes, peripheral vascular disease, impaired vision, history of CVA, temporal arteritis, BPH and bladder cancer. PAST MEDICAL HISTORY: Significant for diabetes, hypertension, history of ischemic cardiovascular accident, history of bladder cancer, iron deficiency anemia, hypertension, temporal arteritis and BPH. PAST SURGICAL HISTORY: Includes a tumor resection from his bladder in 1991 and appendectomy in 1949. ALLERGIES: LISINOPRIL AND FLOMAX. CURRENT MEDICATIONS: Include Pepcid 40 mg daily, Protonix 40 mg daily, Prozac 20 mg daily, finasteride 5 mg daily, Desyrel 50 mg q.h.s., Hytrin 5 mg b.i.d., metoprolol 25 mg b.i.d., [place] 5/325 one tab q.4 hours p.r.n., ferrous sulfate 325 mg b.i.d., Debrox to his ears 5 drops b.i.d., Dulcolax 10 mg per rectum as needed for constipation. He is on beta-carotene multivitamin daily, Eliquis 2.5 mg b.i.d. He is on a glucose replacement protocol and a low resistant insulin sliding scale and he is on MiraLax 17 g in 8 ounces of water daily. HABITS: No current alcohol or tobacco use. HISTORY AND PHYSICAL [id number] RADHA GARCÍA FAMILY HISTORY: Noncontributory. SOCIAL HISTORY: The patient hopes to return back to [facility] and get back to his prior level of functioning. REVIEW OF SYSTEMS: GENERAL: Does complain of some weakness. HEENT: Denies cold, cough, or congestion. CARDIOVASCULAR: Denies chest pain. LUNGS: Denies shortness of breath. PHYSICAL EXAMINATION: VITAL SIGNS: Stable, afebrile. GENERAL: An elderly gentleman in no acute distress, alert upon exam. HEENT: Normocephalic and atraumatic. Mucosa moist. NECK: Supple. No lymphadenopathy. LUNGS: Clear at this time. HEART: Regular rate and rhythm. ABDOMEN: Benign. EXTREMITIES: Does have appropriate swelling status post hip surgery. NEUROLOGIC: Slow to mentate, but intact. LABORATORY DATA: His white count 7.1, H&H of 10 and 29, and platelet count is noted to be 210. Sodium is 141, potassium 3.7, BUN and creatinine of 26 and 0.7, blood sugars noted to be 122. ASSESSMENT: This is an 87-year-old gentleman admitted to the rehab with a working diagnosis of status post ORIF of a left intertrochanteric hip fracture. The patient has potential to make improvement. We instituted the following multidisciplinary therapies including, but not limited to physical, occupational, respiratory, speech, nutritional services, prosthetics and orthotics. Given his complex condition and risk for more complications, rehabilitation services cannot be provided at a lower level of care such as a senior living facility. PLAN: 1. Admit to [facility] rehab for intensive inpatient therapy to include the following disciplines: A. Physical therapy to improve gait, all transfer skills and bed mobility to a modified independent level. B. Occupational therapy to improve activities of daily living to a modified independent level. C. Case management to assist with discharge planning and placement options. D. Nutrition to assist with nutritional needs. E. Rehabilitation nursing to assist in monitoring the patient's underlying medical conditions and to assist with any type of bowel or bladder management. 2. The patient's current medications and medical care will be continued. 3. The patient will be placed on standard fall precautions. 4. The patient's estimated length of stay is approximately 7-10 days. 5. Discuss this patient during care team staff meeting this week. TRANSINT:[id number] Voice Confirmation ID: [id number] DOCUMENT ID: [id number] HISTORY AND PHYSICAL [id number] RADHA GARCÍA notes whether there has been none or any medical/functional change since admission: - TISH attests patient continues to be appropriate for IRF: - ANAMIKA BANERJEE MD at 1230 CC: [id number] DICTATION DATE: 06/16/17 0843 PROTEOMICS SCIENTIST: 06/16/17 0912 ADM IN [facility] [address] [id number]
--- NOTE | 2017-06-17 12:42 | NUR ---
PT SITTING IN WC IN HIS ROOM EATING LUNCH. SUPERVISED BY OT.
--- NOTE | 2017-06-17 14:26 | NUR ---
IN THERAPY,REBECA WELL.
--- NOTE | 2017-06-17 17:39 | NUR ---
PT IS RESTIGN IN BED WITH EYES OPEN. FED SELF SUPPER WITHOUT DIFFICULTY. NO ACUTE DISTRESS NOTED.
--- NOTE | 2017-06-17 19:45 | NUR ---
PT. IN BED WITH HOB UP FOR COMFORT WITH EYES CLOSED AND RESP. DEEP AND EVEN. PT. VERY [place] BUT FINALLY WOKE UP FOR ASSESSMENT. NO VOICED NEEDS AT THIS TIME AND HIS CALL LIGHT IS WITHIN REACH.
[2017-06-17 20:00] VITALS: BP 162/76
--- NOTE | 2017-06-17 23:28 | NUR ---
PT. IN BED WITH HOB UP FOR COMFORT WITH EYES CLOSED AND RESP. DEEP AND EVEN. CALL LIGHT WITHIN REACH.
--- NOTE | 2017-06-18 03:18 | NUR ---
PT. IN BED WITH HOB UP FOR COMFORT WITH EYES CLOSED AND MOUTH WIDE OPEN BREATHING DEEPLY. CALL LIGHT WITHIN REACH.
[2017-06-18 08:00] VITALS: BP 122/62
--- NOTE | 2017-06-18 08:00 | NUR ---
PATIENT IS VERY HARD OF HEARING. ALERT/ORIENT TO SELF AND AWARE THAT HE IS IN THE HOSPITAL. INCONTANT OF BLADDER. BED CHANGED THIS AM. VINAYAK CARE GIVEN BY THIS NURSE. OXYGEN ON AT 3L PER N/C. BED ALARM ON. CALL LIGHT WITHIN REACH.
--- NOTE | 2017-06-18 11:50 | NUR ---
GLUCOSE LEVEL 123. NO SLIDING SCALE GIVEN
--- NOTE | 2017-06-18 13:00 | NUR ---
CL IN REACH.CONT TO MONITOR.
--- NOTE | 2017-06-18 15:00 | NUR ---
PATIENT IS A MAX ASST OF TWO FOR TRANSFERS
--- NOTE | 2017-06-18 17:00 | NUR ---
GLUCOSE LEVEL 134. NO SLIDING SCALE INSULIN GIVEN.
--- NOTE | 2017-06-18 19:45 | NUR ---
PT. IN BED WITH HOB UP FOR COMFORT WITH EYES CLOSED AND RESP. EVEN. PT. AWAKENS WHEN YOU SPEAK DIRECTLY INTO HIS RIGHT EAR, DUE TO DEAFNESS. ASSESSMENT COMPLETED. NO VOICED NEEDS AT THIS TIME. CALL LIGHT WITHIN REACH.
[2017-06-18 20:00] VITALS: BP 132/60
--- NOTE | 2017-06-18 23:23 | NUR ---
PT. IN BED WITH HOB UP FOR COMFORT WITH EYES CLOSED AND MOUTH WIDE OPEN WITH DEEP RESP. CALL LIGHT WITHIN REACH.
--- NOTE | 2017-06-19 03:16 | NUR ---
PT. IN BED WITH HOB UP FOR COMFORT. PT. AWAKE AND WHEN I TOLD HIM WHAT TIME IT WAS HE SAID, "LET'S GET THIS SHOW ON THE ROAD AND GET STARTED". INFORMED PT. THAT THE THERAPIST DON'T GET HERE TIL 8AM AND BREAKFAST HAS TO BE SERVED AND EATEN FIRST. PT. AGREED AND SAID, "WELL I'M GLAD SOMEONE TOLD ME." PT. POSITIONED TO COMFORT AND SAID HE'D GO TO SLEEP. CALL LIGHT WITHIN REACH.
[2017-06-19 06:59] LABS: BASOPHILS 0.3 % (0-2); EOSINOPHILS 3.6 % (0-7); HEMATOCRIT 30.4 % (42.0-54.0); HEMOGLOBIN 10.1 g/dL (13.5-17.5); IMMATURE GRANULOCYTES 1.7 % (0-5); LYMPHOCYTES 16.6 % (15-50); MCH 30.3 pg (26.0-34.0); MCHC 33.2 g/dL (31.0-37.0); MCV 91.3 fL (80.0-100.0); MEAN PLATELET VOLUME 9.2 fL (7.4-10.4); MONOCYTES 12.6 % (2-11); NEUTROPHILS 65.2 % (40-80); RBC 3.33 10x6/uL (4.20-6.10); WBC 6.9 10x3/uL (4.8-10.8)
[2017-06-19 07:04] LABS: PLATELET COUNT 295 10x3/uL (130-400)
[2017-06-19 07:50] LABS: CALC OSMOLALITY 287 mosm/kg (275-300); CALCIUM 7.9 mg/dL (8.5-10.1); CARBON DIOXIDE 30.8 mmol/L (21.0-32.0); CHLORIDE - SERUM 105 mmol/L (98-107); CREATININE - SERUM 0.7 mg/dL (0.6-1.3); GLUCOSE 111 mg/dL (74-106); POTASSIUM - SERUM 3.9 mmol/L (3.5-5.1); SODIUM 142 mmol/L (136-145); UREA NITROGEN 23 mg/dL (7-18); eGFR NON AFRICAN AMERICAN > 90 mL/min (90-120)
--- NOTE | 2017-06-19 08:02 | NUR ---
SITTING UP IN BED EATING BREAKFAST. DENIES NEEDS OR C/O. CALL LIGHT IN REACH
[2017-06-19 08:30] VITALS: BP 125/65
--- NOTE | 2017-06-19 10:01 | NUR ---
PATIENT ALERT TO SELF ONLY. VERY HARD OF HEARING. MAX ASST OF TWO TO GET PATIENT OUT OF BED. WORKING WITH PHYSICAL THERAPIST IN REHAB ROOM. BOX ALARM ON WHILE UP IN CHAIR.
--- NOTE | 2017-06-19 12:58 | NUR ---
NO SLIDING SCALE INSULIN GIVEN. GLUCOSE LEVEL 162, PATIENT DID NOT EAT LUNCH. HAD CHOCOLATE ICE CREAM IN REHABE BEFORE GLUCOSE LEVEL TAKEN
--- NOTE | 2017-06-19 17:00 | NUR ---
GLUCOSE LEVEL 131. NO SLIDING SCALE INSULIN GIVEN.
[2017-06-19 19:35] VITALS: BP 130/66
--- NOTE | 2017-06-19 19:35 | NUR ---
ASSESSMENT PER FLOW SHEET, VS OBTAINED, PT INCONTINENT, THIS RN AND AMANDA WILLARD RN CLEANED PT UP WITH WET WARM WIPES, BEDDING CHANGED, PT REPOSITIONED IN BED, PT DENIES NEEDS OR PAIN AT THIS TIME
--- NOTE | 2017-06-19 20:15 | NUR ---
PT RESTING WITH EYES CLOSED, RESP QUIET, NO DISTRESS NOTED, LEFT UNDISTURBED AT THIS
--- NOTE | 2017-06-19 21:57 | NUR ---
PT RESTING WITH EYES CLOSED, AROUSES TO SOFT VERBAL STIMULTAION, FSBS, ADM 2100 MED PO WITH THICKENED WATER, THIS RN AND SHERIF WILLARD RN CLEANED PT UP WITH WET WARM WASH CLOTHS, BEDDING CHANGED, PT POSITIONED IN BED, DENIES FURTHER NEEDS OR PAIN
--- NOTE | 2017-06-19 22:30 | NUR ---
PT RESTING WITH EYES CLOSED, RESP QUIET, NO DISTRESS NOTED, LEFT UNDISTURBED AT THIS TIME
--- NOTE | 2017-06-20 00:30 | NUR ---
PT RESTING WITH EYES CLOSED, RESP QUIET, NO DISTRESS NOTED, LEFT UNDISTURBED AT THIS TIME
--- NOTE | 2017-06-20 02:20 | NUR ---
PT RESTING WITH EYES CLOSED, RESP QUIET, NO DISTRESS NOTED, LEFT UNDISTURBE AT THIS TIME
--- NOTE | 2017-06-20 04:05 | NUR ---
PT RESTING WITH EYES CLOSED, RESP QUIET, NO DISTRESS NOTED, LEFT UNDISTURBED AT THIS TIME
--- NOTE | 2017-06-20 06:23 | NUR ---
PT RESTING WITH EYES CLOSED, AROUSES TO SOFT VERBAL STIMULATION, FSBS, PT REFUSES PROTONIX, PT INCONTINENT, PINK PAD, BLUE CHUX AND SHIRT CHANGED, PT CLEANED UP WITH WET WARM WIPES, PT DENIES NEEDS, BED ALARM CONTINUES ON AND WORKING PROPERLY, BED IN LOW POSITION, SIDE RAILS X 2, CALL LIGHT IN REACH
--- NOTE | 2017-06-20 07:00 | NUR ---
SHIFT REPORT TO DAY SHIFT
--- NOTE | 2017-06-20 08:00 | NUR ---
PATIENT IS ORIENTATED TO SELF ONLY. BOX ALARM ON. OXYGEN AT 3L PER N/C. CALL LIGHT WITHIN REACH. BREAKFAST TRAY SET UP FOR PATIENT. FOOD CUT AND CARTONS OPENED FOR PATIENT. PATIENT IS ABLE TO FEED SELF.
[2017-06-20 08:14] VITALS: BP 147/68
--- NOTE | 2017-06-20 15:26 | NUR ---
PATIENT HELPED BACK TO BED BY SISI LIFT. ASST OF TWO
--- NOTE | 2017-06-20 15:49 | NUR ---
NUTRITION MONITORING & EVAL CHART REVIEWED, PT VISIT. TOLERATING ADA DIET. GOOD INTAKE SOME MEALS. POOR PO INTAKE TODAY. WILL CONTINUE TO PROVIDE DIET, MONITOR PT PROGRESS. RD FOLLOWING
--- NOTE | 2017-06-20 17:23 | NUR ---
GLUCOSE LEVEL 149. NO SLIDING SCALE INSULIN GIVEN. PATIENT SITTING UP IN BED AND EATTING SUPPER.
--- NOTE | 2017-06-20 18:01 | NUR ---
PRN PAIN MEDICATION GIVEN FOR LEFT LEG/FOOT PAIN.
--- NOTE | 2017-06-20 18:48 | NUR ---
RESTING QUIETLY IN BED. DENIES NEEDS OR C/O. CALL LIGHT IN REACH
[2017-06-20 19:52] VITALS: BP 128/59
--- NOTE | 2017-06-20 19:52 | NUR ---
ASSESSMENT PER FLOW SHEET, VS OBTAINED, LEFT HIP DRESSING INTACT WITH NO DRAINAGE NOTED, PT DENIES NEEDS OR PAIN
--- NOTE | 2017-06-20 20:43 | NUR ---
PT RESTING WITH EYES CLOSED, RESP QUIET, NO DISTRESS NOTED, LEFT UNDISTURBED AT THIS TIME, BED IN LOW POSITION, SIDE RAILS X 2, CALL LIGHT IN REACH, BED ALARM ON AND WORKING PROPERLY
--- NOTE | 2017-06-20 21:26 | NUR ---
PT RESTING WITH EYES CLOSED, AROUSES TO SOFT VERBAL STIMULATION, FSBS, ADM 2100 MEDS WITH THICKENED H20, WILL NOT COVER BS 169 BECAUSE PT REFUSES SNACK, PT INCONTINENT, PT CLEANED UP WITH WET WARM WIPES, ADULT BRIEFS, SHIRT, AND TOP LINENS CHANGED, LEFT LEG ELEVATED ON PILLOW, PT DENIES NEEDS OR PAIN AT THIS TIME, BED IN LOW POSITION, SIDE RAILS X 2, CALL LIGHT IN REACH, BED ALARM ON AND WORKING PROPERLY
--- NOTE | 2017-06-20 22:30 | NUR ---
PT RESTING WITH EYES CLOSED, RESP QUIET, NO DISTRESS NOTED, LEFT UNDISTURBED AT THIS TIME
--- NOTE | 2017-06-21 00:03 | NUR ---
PT RESTING WITH EYES CLOSED, RESP QUIET, NO DISTRESS NOTED, LEFT UNDISTURBED AT THIS TIME
--- NOTE | 2017-06-21 02:33 | NUR ---
PT RESTING WITH EYES CLOSED, RESP QUIET, NO DISTRESS NOTED, LEFT UNDISTURBED AT THIS TIME
--- NOTE | 2017-06-21 04:20 | NUR ---
PT RESTING WITH EYES CLOSED, RESP QUIET, NO DISTRESS NOTED, LEFT UNDISTURBED AT THIS TIME
[2017-06-21 05:35] LABS: BASOPHILS 0.2 % (0-2); EOSINOPHILS 3.3 % (0-7); HEMATOCRIT 30.1 % (42.0-54.0); HEMOGLOBIN 10.3 g/dL (13.5-17.5); IMMATURE GRANULOCYTES 1.7 % (0-5); LYMPHOCYTES 17.3 % (15-50); MCH 30.9 pg (26.0-34.0); MCHC 34.2 g/dL (31.0-37.0); MCV 90.4 fL (80.0-100.0); MEAN PLATELET VOLUME 8.9 fL (7.4-10.4); MONOCYTES 11.2 % (2-11); NEUTROPHILS 66.3 % (40-80); PLATELET COUNT 318 10x3/uL (130-400); RBC 3.33 10x6/uL (4.20-6.10); RDW 13.9 % (11.5-14.5); WBC 6.6 10x3/uL (4.8-10.8)
--- NOTE | 2017-06-21 05:51 | NUR ---
PT RESTING WITH EYES CLOSED, AROUSES TO SOFT VERBAL STIMULATION, FSBS, ADM 0600 MED PER MD ORDERS, SEE EMAR, PT CLEANED UP WITH WET WARM WIPES, ADULT BRIEFS, AND BLUE CHUX CHANGED, PT DENIES NEEDS OR PAIN, BED IN LOW POSITION, SIDE RAILS X 2, CALL LIGHT IN REACH, BED ALARM ON AND WORKING PROPERLY
--- NOTE | 2017-06-21 06:48 | NUR ---
PT BOILER COVERER LIGHT, PT C/O HIP PAIN, ADM NORCO PO PER MD ORDERS, SEE EMAR, WITH FRESH ORANGE JUICE, PT NOTED TO BE WET AGAIN, PT CLEANED UP WITH WET WARM WIPES, ADULT BRIEFS, BLUE CHUX AND TOP LINEN CHANGED, BED IN LOW POSITION, SIDE RAILS X 2, CALL LIGHT IN REACH, PT DENIES FURTHER NEEDS
--- NOTE | 2017-06-21 07:00 | NUR ---
SHIFT REPORT TO DAY SHIFT
--- NOTE | 2017-06-21 07:20 | NUR ---
REPORT RECEIVED FROM LOCKSTITCH POCKET SETTER NURSE. CALL LIGHT IN REACH.
[2017-06-21 08:27] VITALS: BP 125/63
--- NOTE | 2017-06-21 08:57 | NUR ---
ASSESSMENT COMPLETED. C/O PAIN OF 10 TO LEFT HIP. NORCO PO WITH AM MEDS ADMINISTERED. CALL LIGHT IN REACH. BED ALARM ON. WILL CONTINUE WITH PLAN OF CARE.
--- NOTE | 2017-06-21 09:47 | NUR ---
IN BED RESTING WITH EYES CLOSED. RESP EVEN AND UNLABORED. CALL LIGHT IN REACH.
--- NOTE | 2017-06-21 11:26 | NUR ---
PT IN THERAPY, TOLERATING WELL, DENIES NEEDS. WCTM.
--- NOTE | 2017-06-21 11:59 | NUR ---
FSBS 147 SO NO COVERAGE REQUIRED. FAMILY IN ROOM. CALL LIGHT IN REACH.
--- NOTE | 2017-06-21 12:05 | NUR ---
FSBS 187 SO NO COVERAGE REQUIRED. FAMILY IN ROOM. CALL LIGHT IN REACH.
--- NOTE | 2017-06-21 13:09 | NUR ---
YANIV CURIEL FOR BACK PAIN AND HIP PAIN.
--- NOTE | 2017-06-21 14:02 | NUR ---
PAIN DOWN TO A 5.
--- NOTE | 2017-06-21 16:20 | NUR ---
UP IN CHAIR. NO NEEDS VOICED AT THIS TIME. CALL LIGHT IN REACH.
--- NOTE | 2017-06-21 16:34 | NUR ---
PATIENT ADDMITTED TO REHAB FROM A CUTE FLOOR. DR. ADAIR IS HIS PCP AND [facility] FOR MEDICATIONS. PATIENT RESIDES AT [facility] AND DISCHARGE PLANS ARE FOR PATIENT TO RETURN THERE. WILL CONTINUE TO FOLLOW WITH PATIENT. PATIENT WILL BE RA AT NEXT MEETING WITH POSSIBLE DISCHARGE DATE BEING 06/30/17
--- NOTE | 2017-06-21 17:26 | NUR ---
REFUSES INSULIN. BLOOD SUGAR IS 272.
--- NOTE | 2017-06-21 18:43 | NUR ---
NO CHANGES IN INITIAL ASSESSMENT. CALL LIGHT IN REACH. WILL CONTINUE WITH PLAN OF CARE.
--- NOTE | 2017-06-21 19:35 | NUR ---
PT. SITTING UP IN HIS W/C AND IS READY TO GO BACK TO BED. ASSISTED BACK TO BED WITH ASSISTANCE FROM NASEEM Hernandez RN. PT. POSITIONED TO COMFORT AFTER REMOVING HIS SCRUB PANTS FOR THE NIGHT. NO VOICED NEEDS AT THIS TIME AND HIS CALL LIGHT IS WITHIN REACH.
[2017-06-21 20:15] VITALS: BP 112/60
--- NOTE | 2017-06-21 23:17 | NUR ---
PT. IN BED WITH HOB UP FOR COMFORT WITH EYES CLOSED AND RESP. EVEN. O2 AT 3L/MIN VIA N/C WITHOUT ANY S/S DISTRESS OBSERVED. CALL LIGHT WITHIN REACH.
--- NOTE | 2017-06-22 03:10 | NUR ---
PT. IN BED WITH HOB SLIGHTLY ELEVATED FOR COMFORT. EYES CLOSED AND RESP. EVEN. CALL LIGHT WITHIN REACH.
--- NOTE | 2017-06-22 08:00 | NUR ---
POSITIONED UP IN BED.BREAKFAST GIVEN.LEFT HIP BRUISED.DRSG INTACT.LEFT HEEL BRUISED.SWABBED W/SKIN PREP AND WHITE CUSHIONED DRSG APPLIED.HEELS FLOATED ON PILLOW.CL IN REACH.
[2017-06-22 09:45] VITALS: BP 142/66
--- NOTE | 2017-06-22 12:00 | NUR ---
EATING LUNCH,SITTING UP IN WC,CL IN REACH.
--- NOTE | 2017-06-22 18:00 | NUR ---
RESTING QUIETLY.CL IN REACH.
--- NOTE | 2017-06-22 19:29 | NUR ---
RESTING IN BED WITH EYES CLOSED. NO S/S OF DISTRESS OBSERVED.O2@ 3 LITERS PER NASAL CANNULA IN PLACE. RESPIRATIONS EVEN AND UNLABORED. CALL LIGHT, URINAL AND OVERBED TABLE IN REACH.
--- NOTE | 2017-06-22 22:36 | NUR ---
RESTING IN BED WITH EYES CLOSED. NO S/S OF DISTRESS OBSERVED. CALL LIGHT AND OVERBED TABLE IN REACH.
[2017-06-23 00:45] VITALS: BP 143/71
--- NOTE | 2017-06-23 01:21 | NUR ---
RESTING IN BED WITH EYE SCLOSED. NO S/S OF DISTRESS OBSERVED. HEAD OF BED ELEVATED AND O2@ 3 LITERS PER NASAL CANNULA IN PLACE. RESPIRATIONS EVEN AND UNLABORED.
--- NOTE | 2017-06-23 02:54 | NUR ---
RESTING IN BED WITH EYES CLOSED. NO S/S OF DISTRESS OBSERVED. HEAD OF BED ELEVATED 30 DEGREES. O2 PER NASAL CANNULA @ 3 LITERS. RESPIRATIONS EVEN AND UNLABORED. CONTINENT OF BLADDER THIS SHIFT. USES URINAL AND URINAL AT BEDSIDE. MILA LIGHT AND OVERBED TABLE IN REACH.
--- NOTE | 2017-06-23 04:33 | NUR ---
RESTING IN BED WITH EYES CLOSED. NO S/S OF DISTRESS OBSERVED. O2 @ 3 LITERS PER N/C IN PLACE. CALL LIGHT AND OVERBED TABLE IN REACH.
--- NOTE | 2017-06-23 05:14 | NUR ---
INCONTINENT OF BLADDER THIS SHIFT. CHECKED AND CHANGED WITH PARTIAL BED CHANGE. ASSIST WITH TURNING SIDE TO SIDE. USES SIDE RAILS TO ASSIST WITH TURNING.
--- NOTE | 2017-06-23 07:38 | NUR ---
RESTING QUIETLY IN BED. NO S/S DISTRESS. CALL LIGHT IN REACH
[2017-06-23 12:32] LABS: BASOPHILS 0.1 % (0-2); EOSINOPHILS 1.1 % (0-7); HEMATOCRIT 33.5 % (42.0-54.0); HEMOGLOBIN 11.2 g/dL (13.5-17.5); IMMATURE GRANULOCYTES 0.6 % (0-5); MCH 30.5 pg (26.0-34.0); MCHC 33.4 g/dL (31.0-37.0); MCV 91.3 fL (80.0-100.0); MEAN PLATELET VOLUME 8.4 fL (7.4-10.4); MONOCYTES 6.4 % (2-11); NEUTROPHILS 81.8 % (40-80); PLATELET COUNT 291 10x3/uL (130-400); RBC 3.67 10x6/uL (4.20-6.10); RDW 13.8 % (11.5-14.5)
[2017-06-23 12:37] LABS: WBC 9.7 10x3/uL (4.8-10.8)
[2017-06-23 13:05] LABS: CALC OSMOLALITY 275 mosm/kg (275-300); CALCIUM 8.3 mg/dL (8.5-10.1); CARBON DIOXIDE 30.6 mmol/L (21.0-32.0); CHLORIDE - SERUM 99 mmol/L (98-107); GLUCOSE 133 mg/dL (74-106); POTASSIUM - SERUM 3.7 mmol/L (3.5-5.1); PRO BNP 2261 pg/mL (0-450); SODIUM 136 mmol/L (136-145); UREA NITROGEN 19 mg/dL (7-18); eGFR NON AFRICAN AMERICAN 75 mL/min (90-120)
[2017-06-23 14:52] VITALS: BP 106/56
--- NOTE | 2017-06-23 19:09 | NUR ---
LYING IN BED WITH EYESA CLOSED. 02@3 LITERS PER NASAL CANNULA. NO S/S OF DISTRESS OBSERVED. ALARM IN PLACE AND FUNCTIONING PROPERLY. HEARING DEVICE WITH EAR BUDS IN BOTH EARS. CALL LIGHT AND OVERBED TABLE IN REACH.
--- NOTE | 2017-06-23 20:10 | NUR ---
UP IN BED ALERT AND AWAKE. INCONTINENT OF BLADDER. COMPLETE BED CHANGE REQUIRED. PERICARE PROVIDED. CHANGED INTO A GOWN. ABLE TO ASSIST WITH TURNING SIDE TO SIDE. CALL LIGHT AND OVERBED TABLE IN REACH.
[2017-06-23 22:26] VITALS: BP 118/55
--- NOTE | 2017-06-24 | NUR ---
INCONTINENT OF BLADDER. PARTIAL BED CHANGE COMPLETED AND PERICARE PROVIDED. ASSISTED WITH TURNING. PLEASANT AND TALKATIVE. VERY HARD OF HEARING. HEARING AIDES PLACED IN BEDSIDE TABLE IN SMALL BLACK BOX. PT. HAD THEM IN HIS POCKET. CALL LIGHT, URINAL IN REACH.
--- NOTE | 2017-06-24 08:15 | NUR ---
SITTING UP IN BED EATING BREAKFAST. CALL LIGHT IN REACH
[2017-06-24 12:58] VITALS: BP 101/56
--- NOTE | 2017-06-24 13:09 | NUR ---
SITTING IN W/C FINISHING LUNCH. IS [place]. DSG INTACT TO LEFT HIP. PAIN MEDS GIVEN ORDERED.
--- NOTE | 2017-06-24 19:34 | NUR ---
RESTING IN BED WITH EYES CLOSED. HOB ELEVATED AND O2 @ 3LITERS PER N/C IN PLACE. RESPIRATIONS EVEN AND UNLABORED. NO S/S OF DISTRESS OBSERVED. BOX ALARM ATTACHED AND FUNCTIONAL. CALL LIGHT AND OVERBED TABLE IN REACH
--- NOTE | 2017-06-24 21:12 | NUR ---
LYING IN BED WITH EYES OPEN. C/O LEFT HIP PAIN. DRESSING TO SITE INTACT. VERY HARD OF HEARINF AND POOR EYE SIGHT. NORCO GIVEN PER ORDERS. CALL LIGHT AND OVERBED TABLE IN REACH.
--- NOTE | 2017-06-24 23:46 | NUR ---
RESTING IN BED WITH EYES CLOSED. NO S/S OF DISTRESS OBSERVED. O2 @ 3 LITERS PER N/C IN PLACE. C/O EAR PAIN EARLIER D/T O2 TUBING. CUSHIONS PLACED ON TUBING. STAGE 2 TO BACK OF RIGHT EAR. NO DRAINAGE OBSERVED. BANDAIDE PLACE ON AREA. CALL LIGHT AND OVERBED TABLE IN REACH.
[2017-06-24 23:57] VITALS: BP 129/63
--- NOTE | 2017-06-25 04:07 | NUR ---
pt requested urinal, pt [place], conversive denies any other needs.
--- NOTE | 2017-06-25 06:58 | NUR ---
RESTING QUIETLY IN BED. NO S/S DISTRESS. CALL LIGHT IN REACH
--- NOTE | 2017-06-25 12:30 | NUR ---
RESTING QUIETLY IN BED. IS VERY [place]. HAD LARGE BM THIS AM. MAX ASST WITH ADL'S.
[2017-06-25 14:35] VITALS: BP 125/65
--- NOTE | 2017-06-25 18:20 | NUR ---
RESTING QUIETLY IN BED. EYES CLOSED. RESP EFFORT NON LABORED. CALL LIGHT IN REACH
--- NOTE | 2017-06-25 19:25 | NUR ---
RESTING QUIETLY IN BED, EYES CLOSED.
--- NOTE | 2017-06-25 20:20 | NUR ---
CONTINUES IN BED, EYES CLOSED. NO DISTRESS NOTED.
--- NOTE | 2017-06-25 22:19 | NUR ---
RESTING IN BED WITH EYES CLOSED. EASILY AROUSES WITH TOUCH. INCONTINENT OF BLADDER. PERICARE PROVIDED AND PARTIAL BED CHANGE PROVIDED. O2 @ 3 LITERS PER N/C NOT IN PLACE. EDUCATED ON THE NEED TO KEEP IT IN PLACE AND EAR CUSHIONS PLACED ON TUBING AND PUT BACK IN PLACE. STATES "THAT FEELS MUCH BETTER". HOB ELEVATED TO 30 DEGREES. DENIES ANY PAIN AT THIS TIME. URINAL PLACED AT BEDSIDE AND INSTUCTED PT. TO USE IT. BOX ALARM IN PLACE AND FUNCTIONING PROPERLY. CALL LIGHT AND OVERBED TABLE IN REACH.
[2017-06-25 23:54] VITALS: BP 142/79
--- NOTE | 2017-06-26 00:23 | NUR ---
RESTING IN BED WITH EYES CLOSED. NO S/S OF DISTRESS OBSERVED. HOB ELEVATED AND O2@3 LITERS PER N/C IN PLACE. CALL LIGHT, URINAL AND BEDSIDE TABLE IN REACH.
--- NOTE | 2017-06-26 02:34 | NUR ---
RESTING IN BED WITH EYES CLOSED. NO S/S OF DISTRESS OBSERVED. URINAL EMPTIED AND 250ML URINE IN IT. CALL LIGHT , URINAL AND BEDSIDE TABLE IN REACH.
--- NOTE | 2017-06-26 04:15 | NUR ---
INCONTINENT OF BLADDER. PARTIAL BED CHANGE REQUIRED. HOB ELEVATED AND O2 PER N/C IN PLACE. CALL LIGHT AND OVERBED TABLE IN REACH.
[2017-06-26 05:34] LABS: BASOPHILS 0.2 % (0-2); EOSINOPHILS 2.4 % (0-7); HEMATOCRIT 29.4 % (42.0-54.0); HEMOGLOBIN 9.8 g/dL (13.5-17.5); IMMATURE GRANULOCYTES 0.6 % (0-5); LYMPHOCYTES 16.4 % (15-50); MCH 30.3 pg (26.0-34.0); MCHC 33.3 g/dL (31.0-37.0); MEAN PLATELET VOLUME 8.6 fL (7.4-10.4); MONOCYTES 12.6 % (2-11); NEUTROPHILS 67.8 % (40-80); PLATELET COUNT 295 10x3/uL (130-400); RBC 3.23 10x6/uL (4.20-6.10); RDW 14.1 % (11.5-14.5); WBC 5.3 10x3/uL (4.8-10.8)
[2017-06-26 05:49] LABS: CALC OSMOLALITY 277 mosm/kg (275-300); CALCIUM 8.1 mg/dL (8.5-10.1); CHLORIDE - SERUM 103 mmol/L (98-107); CREATININE - SERUM 0.8 mg/dL (0.6-1.3); GLUCOSE 121 mg/dL (74-106); POTASSIUM - SERUM 3.8 mmol/L (3.5-5.1); SODIUM 138 mmol/L (136-145); UREA NITROGEN 14 mg/dL (7-18); eGFR NON AFRICAN AMERICAN > 90 mL/min (90-120)
--- NOTE | 2017-06-26 07:17 | NUR ---
RESTING QUIETLY IN BED. NO S/S DISTRESS. CALL LIGHT IN REACH
[2017-06-26 09:45] VITALS: BP 129/74
--- NOTE | 2017-06-26 13:49 | NUR ---
INCONT OF URINE. REFUSED TO PARTICIPATE IN THERAPY THIS AFTERNOON. X2 DIFFERENT THERAPISTS ASKED HIM TO PARTICIAPTE IN THERAPY AND HE REFUSED. HE KEEPS PULLING OFF OXYGEN ALSO. HE IS VERY [place].
[2017-06-26 19:37] VITALS: BP 122/70
--- NOTE | 2017-06-26 19:43 | NUR ---
PT IS RESTING QUIETLY IN BED WITH EYES CLOSED. AWOKE EASILY TO VERBAL STIMULI. ALERT TO SELF ONLY. CONFUSED TO ALL ELSE. UNABLE TO REORIENT PT AT THIS TIME. PT NOTED TO BE INC. OF A LARGE AMOUNT OF URINE. VINAYAK CARE AND LINEN CHANGE DONE. SR'S ARE UP X 3 IN BED. CALL LIGHT AND BEDSIDE TABLE ARE WITHIN EASY REACH.
--- NOTE | 2017-06-26 21:18 | NUR ---
PT IS RESTING QUIETLY IN BED WITH EYES CLOSED. RESPS ARE EVEN AND UNLABORED. NO ACUTE DISTRESS NOTED.
--- NOTE | 2017-06-26 23:42 | NUR ---
RESTING QUIETLY IN BED WITH EYES OPEN. 150 CC EMPTIED FROM URINAL. INC. CARE GIVEN.
--- NOTE | 2017-06-27 00:40 | NUR ---
IN BED, EYES CLOSED. RESTING QUIETLY.
--- NOTE | 2017-06-27 04:22 | NUR ---
RESTING IN BED WITH EYES CLOSED.
[2017-06-27 08:00] VITALS: BP 113/78
--- NOTE | 2017-06-27 08:00 | NUR ---
SHIFT ASSMT COMPLETED.CL IN REACH.MEAL SET UP GIVEN.
--- NOTE | 2017-06-27 12:00 | NUR ---
REFUSED LUNCH.CL IN REACH.
--- NOTE | 2017-06-27 15:41 | NUR ---
NUTRITION MONITORING & EVAL CHART REVIEWED. PT TOLERATING ADA DIET. IMPROVED PO INTAKE. RECENT BM RECORDED. WILL CONTINUE TO PROVIDE DIET, MONITOR INTAKE. RD FOLLOWING
--- NOTE | 2017-06-27 15:50 | NUR ---
Wound care asked by Primary RN to see pt d/t pressure injury on left heel. Noted an unstageable pressure injury measuring 5cm x 4cm x eschar and bruising. It is being protected with mepilex border and is being bridged. Wound care will continue to monitor.
--- NOTE | 2017-06-27 16:00 | NUR ---
WILL CONTINUE TO MONITOR.
[2017-06-27 19:30] VITALS: BP 129/61
--- NOTE | 2017-06-27 19:32 | NUR ---
PT IS RESTING QUIETLY IN BED WITH EYES CLOSED. AWOKE EASILY TO VERBAL STIMULI. DENIES NEEDS AT THIS TIME. PT STATES HE WOULD LIKE A PAIN PILL LATER. O2 IS ON @ 3LPM PER NC. NO SOB NOTED. PT IS VERY [place]. USES URINAL PRN, WITH OCCASIONAL ACCIDENTS. HEELS ARE BRIDGED UP ON PILLOWS. SR'S ARE UP X 3 IN BED. CALL LIGHT AND BEDSIDE TABLE ARE WITHIN EASY REACH.
--- NOTE | 2017-06-27 21:31 | NUR ---
PT IS RESTING IN BED WATCHING TV. NO ACUTE DISTRESS NOTED.
--- NOTE | 2017-06-28 00:01 | NUR ---
RESTING IN BED WITH EYES CLOSED.
--- NOTE | 2017-06-28 01:40 | NUR ---
PATIENT RESTING QUIETLY IN BED. NO DISTRESS EVIDENT.
--- NOTE | 2017-06-28 03:00 | NUR ---
PT RESTING IN BED WITH EYES CLOSED. NO DISTRESS NOTED.
[2017-06-28 05:54] LABS: BASOPHILS 0.5 % (0-2); EOSINOPHILS 3.4 % (0-7); HEMATOCRIT 31.5 % (42.0-54.0); HEMOGLOBIN 10.5 g/dL (13.5-17.5); IMMATURE GRANULOCYTES 0.5 % (0-5); LYMPHOCYTES 22.8 % (15-50); MCH 30.5 pg (26.0-34.0); MCHC 33.3 g/dL (31.0-37.0); MCV 91.6 fL (80.0-100.0); MEAN PLATELET VOLUME 9.1 fL (7.4-10.4); MONOCYTES 12.6 % (2-11); NEUTROPHILS 60.2 % (40-80); PLATELET COUNT 306 10x3/uL (130-400); RBC 3.44 10x6/uL (4.20-6.10); RDW 14.2 % (11.5-14.5); WBC 4.4 10x3/uL (4.8-10.8)
--- NOTE | 2017-06-28 06:20 | NUR ---
PT RESTING IN BED WITH EYES OPEN. NOTED TO BE INC. OF URINE. PT HAS BEEN INC ALL NIGHT TONIGHT. WHEN ASKED IF HE NEEDED THE URINAL, HE ACTED IF HE DID NOT KNOW HOW TO USE IT. INC. CARE GIVEN AND PAD CHANGED. PANTS LEFT OFF SO PT COULD USE THE URINAL IF DESIRED.
[2017-06-28 06:23] LABS: CALC OSMOLALITY 280 mosm/kg (275-300); CALCIUM 8.2 mg/dL (8.5-10.1); CARBON DIOXIDE 30.2 mmol/L (21.0-32.0); CHLORIDE - SERUM 102 mmol/L (98-107); CREATININE - SERUM 0.9 mg/dL (0.6-1.3); GLUCOSE 114 mg/dL (74-106); POTASSIUM - SERUM 3.9 mmol/L (3.5-5.1); SODIUM 139 mmol/L (136-145); UREA NITROGEN 18 mg/dL (7-18); eGFR NON AFRICAN AMERICAN 84 mL/min (90-120)
--- NOTE | 2017-06-28 07:35 | NUR ---
URINAL USED.DRESSED AND UP OOB WITH MOD ASSIST TO WC FOR BREAKFAST.CL IN REACH.LEFT HIP INCISIONS X2 WITH SURROUNDING AREA BRUISING NOTED.
[2017-06-28 08:15] VITALS: BP 102/55
--- NOTE | 2017-06-28 12:00 | NUR ---
SITTING UP IN WC.CL IN REACH.
--- NOTE | 2017-06-28 16:00 | NUR ---
REMAINS UP IN WC.CL IN REACH.
[2017-06-28 19:25] VITALS: BP 131/58
--- NOTE | 2017-06-28 21:20 | NUR ---
PM MEDS GIVEN AT THIS TIME. PT REQEUSTED PAIN MEDICATION FOR PAIN 08/29. DENIES OTHER NEEDS. BED LOW. PHONE AND CALL LIGHT IN REACH. [id number].
--- NOTE | 2017-06-28 22:00 | NUR ---
PT RESTING QUIETLY AT THIS TIME WITH EYES CLOSED. RESPIRATIONS EVEN, NON-LABORED. NO ACUTE DISTRESS NOTED AT THIS TIME. BED LOW. PHONE AND CALL LIGHT IN REACH. [id number].
--- NOTE | 2017-06-28 23:21 | NUR ---
PT RESTING QUIETLY AT THIS TIME WITH EYES CLOSED. AROUSED EASILY. PT DENIES NEEDS AT THIS TIME. BED LOW. PHONE AND CALL LIGHT IN REACH. [id number].
--- NOTE | 2017-06-29 02:50 | NUR ---
PT RESTING QUIETLY AT THIS TIME WITH EYES CLOSED. AROUSED EASILY. DENIES NEEDS. BED LOW. PHONE AND CALL LIGHT IN REACH. [id number].
--- NOTE | 2017-06-29 04:57 | NUR ---
PT RESTING QUIETLY AT THIS TIME WITH EYES CLOSED. AROUSED EASILY. CHANGED BRIEF AT THIS TIME DUE TO PT HAVING SMALL INCONTINENT VOID IN BRIEF. PT DENIES NEEDS. BED LOW. PHONE AND CALL LIGHT IN REACH. SRX2.
--- NOTE | 2017-06-29 05:25 | NUR ---
PT RESTING QUIETLY AT THIS TIME WITH EYES CLOSED. AROUSED EASILY. ADMINSITERED PROTONIX PO PER ORDERS AT THIS TIME. PT DENIES OTHER NEEDS. BED LOW. PHONE AND CALL LIGHT IN REACH. SRX2.
--- NOTE | 2017-06-29 07:35 | NUR ---
RESTING QUIETLY IN BED. NO S/S DISTRESS OR NEEDS. CALL LIGHT IN REACH
[2017-06-29 08:17] VITALS: BP 143/61
--- NOTE | 2017-06-29 12:17 | NUR ---
PER FAMILY REQUEST REFERRAL FAXED TO [facility] FOR POSSIBLE ADMISSION ON 06/30/17. WILL CONTINUE TO FOLLOW WITH PATIENT.
--- NOTE | 2017-06-29 16:31 | NUR ---
RESTING QUIETLY IN BED. EYES CLOSED. NO S/S DISTRES.. CALL LIGHT IN REACH
[2017-06-29 19:15] VITALS: BP 133/64
--- NOTE | 2017-06-29 19:15 | NUR ---
PT RECEIVED LYING IN BED RESTING QUIETLY WITH EYES CLOSED. AROUSED EASILY. ASSESSMENT COMPLETED PER FLOW SHEET AT THIS TIME. VITAL SIGNS TAKEN. PT VOIDED APPROX 100 CC INTO URINAL. PT DENIES NEEDS AT THIS TIME. BED LOW. PHONE AND CALL LIGHT IN REACH. SRX2.
--- NOTE | 2017-06-29 21:58 | NUR ---
PM MEDS GIVEN AT THIS TIME. PT FSBS 109. PT DENIES NEEDS. BED LOW. PHONE AND CALL LIGHT IN REACH. SRX2.
--- NOTE | 2017-06-30 06:01 | NUR ---
PROTONIX PO GIVEN AT THIS TIME. PT FSBS 111. DENIES NEEDS. BED LOW. PHONE AND CALL LIGHT IN REACH. SRX2.
--- NOTE | 2017-06-30 07:13 | NUR ---
RESTING QUIETLY IN BED. EYES CLOSED. NO S/S DISTRESS OR NEEDS. CALL LIGHT IN REACH.
[2017-06-30 08:02] LABS: BASOPHILS 0.2 % (0-2); EOSINOPHILS 2.3 % (0-7); HEMATOCRIT 30.7 % (42.0-54.0); HEMOGLOBIN 10.4 g/dL (13.5-17.5); IMMATURE GRANULOCYTES 0.2 % (0-5); LYMPHOCYTES 23.8 % (15-50); MCH 30.7 pg (26.0-34.0); MCHC 33.9 g/dL (31.0-37.0); MCV 90.6 fL (80.0-100.0); MEAN PLATELET VOLUME 9.1 fL (7.4-10.4); MONOCYTES 9.5 % (2-11); PLATELET COUNT 274 10x3/uL (130-400); RBC 3.39 10x6/uL (4.20-6.10); WBC 4.8 10x3/uL (4.8-10.8)
[2017-06-30 08:04] VITALS: BP 136/60
[2017-06-30] MEDS ORDERED: HYDROCODON-ACE1 EAC7 PO (09:05)
--- NOTE | 2017-06-30 09:37 | NUR ---
PATIENT DISCHARGING TO [facility]. FACILITY WILL TRANSPORT PATIENT TO FACILITY BY FACILITY VAN.NO DME OR HOME HEALTH NEEDED AT THIS TIME. DR. FIELDS 07/13/17 @ 11:00. PATIENT CHOICE FORM FOR [facility] AND [facility] FORM SIGNED, EXPLAINED AND FILED IN CHART.
--- NOTE | 2017-06-30 09:41 | NUR ---
UNABLE TO REACH DAUGHTER DENNIS TO INFORM HER OF ACCEPTANCE TO [facility].
--- NOTE | 2017-06-30 12:17 | NUR ---
RESTING QUIETLY IN BED. PAIN MEDICATION JUST GIVEN PER PT REQUEST FOR LEFT HIP PAIN. HE REMAINS CONFUSED AND ANGOON AND INCONT. DSG TO LEFT HEEL IN PLACE. INCISION SITE TO LEFT HIP OPEN TO AIR. NO S/S INFECTION.
--- NOTE | 2017-06-30 12:31 | NUR ---
D/C WITH ALL PERSONAL BELONGINGS TO [facility]. COMMUNICATIONS ASSOCIATE TOOK PT IN W/C. SENT PAPERWORK AND HEARING AIDS X2 AND BATTERIES WITH PT'S BELONGINGS.
== END 2017-06-30 13:31 | disposition home or self-care (01) | DRG 560 ==
LOC: D.REHAB 17:37
PROVIDERS: Family Medicine; ADMIT Emergency Medicine
DX: S72.092D Other fracture of head and neck of left femur, subsequent encounter for closed fracture with routine healing (principal); J81.1 Chronic pulmonary edema; D62 Acute posthemorrhagic anemia; W19.XXXD Unspecified fall, subsequent encounter; R00.0 Tachycardia, unspecified; J44.9 Chronic obstructive pulmonary disease, unspecified; R09.02 Hypoxemia; I10 Essential (primary) hypertension; D50.9 Iron deficiency anemia, unspecified; E11.9 Type 2 diabetes mellitus without complications; I73.9 Peripheral vascular disease, unspecified; H53.8 Other visual disturbances; N40.0 Benign prostatic hyperplasia without lower urinary tract symptoms; C67.9 Malignant neoplasm of bladder, unspecified

== ENCOUNTER → 2017-08-09 15:04 | Outpatient (CLI) | payer MEDICARE ==
[2017-06-16 12:35] VITALS: BMI 26.3
== END | disposition home or self-care (01) ==
LOC: D.CT 15:00
DX: L89.620 Pressure ulcer of left heel, unstageable (principal)